=== PATIENT | female | born 1940 | race Caucasian/White ===

== ENCOUNTER → 2016-11-15 | Outpatient (CLI) | payer MEDICARE, OTHER ==
[~2016-11-15] MED LIST: ASPIRIN 81M81 MG/TA2 PO; BETAPACE 80MG80 MG PO; BYSTOLIC5 MG PO; CALCIUM + D 6001 TA1 PO; CARDI-OMEGA1000 MG PO; CATAPRES 0.1MG0.1 MG PO; CLEOCIN HCL300 MG PO; COUMADIN 5MG5 MG/TAB PO; EDARBI80 MG PO; FOSAMAX 70MG TA70 MG PO; LASIX 20MG TABL20 MG PO; LEVOTHYROXIN; MULTAQ400 MG PO; POTASSIUM99 MG PO; PRILOSEC 20MG20 MG PO; RED RICE YEAST E0.4% PO; SYNTHROID0.075 MG/T PO; VITAMIN C500 MG PO; VITAMIN D31000 I1 PO
== END ==
LOC: COL.RAD 10:14
DX: M25.551 Pain in right hip (principal)
CPT/HCPCS: J3301; Q9967

== ENCOUNTER 2017-02-28 11:15 | Inpatient (IN) | payer MEDICARE, OTHER ==
[~2017-02-28] VITALS: Ht 160 cm; Wt 76.0 kg
[2017-04-11] VITALS (13 sets, daily range): BP systolic 105–144; BP diastolic 54–70; PULSE 69–82; TEMP 97.5–98.8
[2017-04-11 06:51] LABS: INR 1.1 (0.8-3.0); PROTHROMBIN TIME 12.4 SECONDS (9.7-12.8)
[2017-04-12] VITALS (9 sets, daily range): BP systolic 86–129; BP diastolic 41–64; PULSE 74–88; TEMP 97.9–99.5
[2017-04-12 08:18] LABS: INR 1.2 (0.8-3.0); PROTHROMBIN TIME 13.6 SECONDS (9.7-12.8)
[2017-04-12 08:19] LABS: HEMATOCRIT 30.5 % (37.0-47.0); HEMOGLOBIN 10.2 g/dl (12.5-16.0)
[2017-04-12 18:15] LABS: HEMATOCRIT 31.5 % (37.0-47.0); HEMOGLOBIN 10.6 g/dl (12.5-16.0)
[2017-04-13 00:09] VITALS: BP 134/62; PULSE 82; TEMP 98.2
[2017-04-13 03:11] VITALS: BP 123/49; PULSE 85; TEMP 99.1
[2017-04-13 06:29] VITALS: PULSE 89
[2017-04-13 07:27] VITALS: BP 145/59; PULSE 95; TEMP 98.4
[2017-04-13 07:45] LABS: INR 1.6 (0.8-3.0); PROTHROMBIN TIME 17.8 SECONDS (9.7-12.8)
[2017-04-13 07:46] LABS: HEMATOCRIT 31.8 % (37.0-47.0); HEMOGLOBIN 10.7 g/dl (12.5-16.0)
[2017-04-13 11:38] VITALS: BP 114/54; PULSE 86; TEMP 97.7
[2017-04-13] MEDS ORDERED: NORCO 325 MG-7.1 TAB PO (12:46)
[2017-04-13] MEDS ORDERED: COUMADIN 3MG3 MG/TAB PO (12:46)
[2017-04-13] MEDS ORDERED: ROXICODONE 55 MG/TAB PO (12:48)
== END 2017-04-13 14:47 | disposition home or self-care (01) | DRG 470 ==
LOC: JCC 04-11 05:10
PROVIDERS: Nurse Anesthetist, Certified Registered; Orthopaedic Surgery
PROC: 0SR90JA Replacement of Right Hip Joint with Synthetic Substitute, Uncemented, Open Approach (ICD-10-PCS; principal; 2017-04-11 07:30)
DX: M16.11 Unilateral primary osteoarthritis, right hip (principal); I10 Essential (primary) hypertension; Z79.01 Long term (current) use of anticoagulants; Z95.5 Presence of coronary angioplasty implant and graft
CPT/HCPCS: A4315; A9284; C1776; J2250; J2370; J2704; J2765; J3010; J7030; J7040; J7120

== ENCOUNTER → 2017-03-29 | Outpatient (CLI) | payer MEDICARE, OTHER ==
[2017-03-29 16:17] LABS: HIV 1/2 Antibodies Non-Reactive; HIV-1p24 Antigen Non-Reactive
== END ==
LOC: COL.LAB 14:56
PROVIDERS: Orthopaedic Surgery
DX: Z01.812 Encounter for preprocedural laboratory examination (principal); M16.11 Unilateral primary osteoarthritis, right hip

== ENCOUNTER 2023-04-14 17:26 | Inpatient (IN) | payer MEDICARE, OTHER ==
[~2023-04-14] VITALS: Ht 157.5 cm; Wt 62.8 kg
[~2023-04-14 17:26] MED LIST changes: +ASPIRIN E.C. 8181 MG PO; +BENICAR40 MG PO; -BETAPACE 80MG80 MG PO; +BETAPACEAF120 PO; +BRILINTA90 MG PO; +CALCIUM 600 MG1 EAC2 PO; +COUMADIN 3MG3 MG/TAB PO; -COUMADIN 5MG5 MG/TAB PO; +COUMADIN4 MG PO; +HAIRSKINNAILS PO; +LUTEIN20 M1 PO; +MASON NATURAL600 MG PO; +MULTI VITAMINS1 TAB PO; +NATURAL MAGNES200 MG PO; +NATURAL POTASS595 MG PO; +NORCO 325 MG-7.1 TAB PO; +NORVASC 5MG5 MG/TAB PO; -POTASSIUM99 MG PO; +ROXICODONE 55 MG/TAB PO; +TART CHERRY PO; +THE MEDICINE S200 M2 PO; +TURMERIC500 MG PO; +ULTRAM 50MG TAB50 MG PO
--- NOTE | 2023-04-14 19:00 | NUR ---
Patient arrived to the unit at this time with . Assessment complete. IV in right AC flushes easily and no complicaitions. Patient put on Tele. Oriented patient and family to room. Denies any pain at this time. Skin looks good. Denies any other needs at this point. Call light and personal items in reach. Bed in low position.
[2023-04-14 19:30] VITALS: BP 136/69; PULSE 71; TEMP 97.7
[2023-04-14 19:40] VITALS: BP 136/69; PULSE 71; TEMP 97.7
[2023-04-14] MEDS ORDERED: JARDIANCE10 (19:57)
[2023-04-14] MEDS ORDERED: IMDUR 60MG60 MG/TAB PO (19:58)
[2023-04-14] MEDS ORDERED: BENICAR40 MG PO (19:59)
[2023-04-14] MEDS ORDERED: LASIX 20MG TABL20 MG PO (20:00)
[2023-04-14 20:04] LABS: BASO # 0.1 K/mm3 (0.0-0.2); BASO % 1.1 % (0.0-2.0); EOS # 0.1 K/mm3 (0.0-0.7); EOS % 1.8 % (0.0-4.0); GRAN # 3.5 K/mm3 (1.4-6.5); GRAN % 62.8 % (42.2-75.2); HEMATOCRIT 44.9 % (37.0-47.0); HEMOGLOBIN 15.2 g/dl (12.5-16.0); LYMPH # 1.4 K/mm3 (1.2-3.4); LYMPH % 25.1 % (20.0-51.0); MEAN CELL VOLUME 95 fl (80.0-100.0); MEAN CORPUSCULAR HEMOGLOBIN 32 pg (27-31); MEAN CORPUSCULAR HGB CONC 34 g/dl (33.0-37.0); MEAN PLATELET VOLUME 10.1 fl (7.4-10.4); MONO # 0.5 K/mm3 (0.1-0.6); PLATELET COUNT 169 K/mm3 (130-400); RED BLOOD COUNT 4.73 M/mm3 (4.10-5.30)
[2023-04-14 20:20] LABS: ALANINE AMINOTRANSFERASE 20 U/L (0-55); ALKALINE PHOSPHATASE 89 U/L (40-150); ANION GAP 14 mmol/L (7-16); AST,SGOT 23 U/L (5-34); BILIRUBIN,TOTAL 2.2 mg/dL (0.2-1.2); BLOOD UREA NITROGEN 12 mg/dL (10-20); CALCIUM 9.1 mg/dL (8.4-10.2); CARBON DIOXIDE 26 mmol/L (23-31); CHLORIDE 100 mmol/L (98-107); CREATININE, serum 0.84 mg/dL (0.57-1.11); GLUCOSE 121 mg/dL (70-99); MAGNESIUM 1.9 mg/dL (1.6-2.6); PHOSPHOROUS 3.3 mg/dL (2.3-4.7); SODIUM 140 mmol/L (136-145); TOTAL PROTEIN 6.4 gm/dL (6.2-8.1)
[2023-04-14 20:21] LABS: INR 3.2 (0.8-3.0); PROTHROMBIN TIME 34.2 SECONDS (9.7-12.8)
[2023-04-14 20:26] LABS: TROPONIN-I < 0.010 ng/mL (0.00-0.033)
[2023-04-14 21:00] VITALS: BP_SYST 130
[2023-04-14 23:46] VITALS: BP 130/66; PULSE 77; TEMP 97.5
[2023-04-15] VITALS (12 sets, daily range): BP systolic 111–146; BP diastolic 50–80; PULSE 73–81; TEMP 97.6–98.3
[2023-04-15 06:07] LABS: HEMATOCRIT 41.3 % (37.0-47.0); HEMOGLOBIN 13.6 g/dl (12.5-16.0); MEAN CELL VOLUME 95 fl (80.0-100.0); MEAN CORPUSCULAR HEMOGLOBIN 31 pg (27-31); MEAN CORPUSCULAR HGB CONC 33 g/dl (33.0-37.0); MEAN PLATELET VOLUME 9.9 fl (7.4-10.4); PLATELET COUNT 150 K/mm3 (130-400); RED BLOOD COUNT 4.35 M/mm3 (4.10-5.30)
--- NOTE | 2023-04-15 06:10 | NUR ---
Patient resting in bed. Denies any pain or needs at this time. Call light and personal items in reach. Bed in low position
[2023-04-15 06:29] LABS: ALBUMIN 3.5 gm/dL (3.4-4.8); BILIRUBIN,TOTAL 1.8 mg/dL (0.2-1.2); CALCIUM 8.7 mg/dL (8.4-10.2); CREATININE, serum 0.76 mg/dL (0.57-1.11); MAGNESIUM 1.8 mg/dL (1.6-2.6); POTASSIUM 3.3 mmol/L (3.5-4.5); TOTAL PROTEIN 5.4 gm/dL (6.2-8.1)
--- NOTE | 2023-04-15 10:13 | NUR ---
PATIENT RESTING IN BED UPON ENTERING ROOM, AT BEDSIDE. MORNING MEDICATIONS ADMINISTERED. SHIFT ASSESSMENT COMPLETED. PATIENT DENIES ANY PAIN OR NEEDS AT THIS TIME. UPDATED ON PLAN FOR TODAY. CALL LIGHT WITHIN REACH, WILL CONTINUE TO MONITOR.
[2023-04-15 11:40] LABS: COLLECTION METHOD CLEAN CATCH; PH 5.5 (5.0-8.5); URINE APPEARANCE Clear (CLEAR/HAZY); URINE BLOOD TRACE-INTACT (NEGATIVE); URINE COLOR Yellow (YELLOW); URINE GLUCOSE 1+ (NEGATIVE); URINE KETONE TRACE (NEGATIVE); URINE NITRATE Negative (NEGATIVE); URINE PROTEIN(semi-quant) Negative (NEGATIVE); URINE UROBILINOGEN 0.2 E.U/dL (0.2-1.0)
[2023-04-15 11:41] LABS: SQUAMOUS EPITHELIAL 0-2 /hpf (0-10); URINE BACTERIA Rare /hpf (NONE SEEN)
--- NOTE | 2023-04-15 12:35 | NUR ---
Research Assoc rounds: Patient's Matthew is visiting. Matthew is a retired Senior Engineer who sometimes fills the pulpit for a taoism. Discussion about his current sermon series and about their family. Patient's lunch arrived. Patient chose to finish the Research Assoc visit before eating. Research Assoc prayed for Patient, her healing, and his ministry, and their family.
--- NOTE | 2023-04-15 14:55 | NUR ---
SW met with patient to complete intake. Spouse Matthew Ding [phone] who is also appointed DPOA\HC present during intake. Patient provides that she and spouse live in [facility]. Patient provides that she is independent with ADLs, does not utilize DME and does not utilize HH services at this time. PCP is Dr. Dumont in [place], and pharmacy is [facility] in [place]. DPOA is daughter Emi May. Patient dc plan is home. SW will continue to follow. DC plan: home
[2023-04-16] VITALS (9 sets, daily range): BP systolic 111–139; BP diastolic 61–85; PULSE 72–88; TEMP 97.8–98.3
--- NOTE | 2023-04-16 05:15 | NUR ---
ASSESSMENT COMPLETE FOR SUPPLY REQUIREMENTS OFFICER. PT COMPLAINED OF SOME NECK PAIN. SCHEDULED TRAMADOL GIVEN. PT FELT THE TRAMADOL WAS EFFECTIVE FOR HER PAIN. PT DENIED CHEST PAIN, PALPITATIONS, SOB, N,V,D OR DIZZINESS. PT EXPRESSED NO ADDITIONAL NEEDS. CALL LIGHT WITHIN REACH.
[2023-04-16 06:17] LABS: HEMATOCRIT 41.4 % (37.0-47.0); HEMOGLOBIN 13.9 g/dl (12.5-16.0); MEAN CELL VOLUME 95 fl (80.0-100.0); MEAN CORPUSCULAR HEMOGLOBIN 32 pg (27-31); MEAN CORPUSCULAR HGB CONC 34 g/dl (33.0-37.0); MEAN PLATELET VOLUME 10.2 fl (7.4-10.4); PLATELET COUNT 166 K/mm3 (130-400); RED BLOOD COUNT 4.37 M/mm3 (4.10-5.30)
[2023-04-16 06:34] LABS: CALCIUM 9.1 mg/dL (8.4-10.2); CREATININE, serum 0.76 mg/dL (0.57-1.11); MAGNESIUM 1.9 mg/dL (1.6-2.6); POTASSIUM 3.2 mmol/L (3.5-4.5)
--- NOTE | 2023-04-16 08:00 | NUR ---
Patient sitting up on the edge of bed. A&Ox4. VSS. IV CDI. Denies pain and discomfort. Call light within reach
[2023-04-16 08:50] LABS: INR 2.8 (0.8-3.0); PROTHROMBIN TIME 30.2 SECONDS (9.7-12.8)
--- NOTE | 2023-04-16 20:45 | NUR ---
Patient sitting on bench. Denies any pain at this time. Assessment complete. IV in right AC flushes with no complications and IV dressign changed. Denies any needs at this time. Call light and personal items in reach. Bed in low position
[2023-04-17] VITALS (16 sets, daily range): BP systolic 104–143; BP diastolic 61–89; PULSE 61–117; TEMP 85–98.5
--- NOTE | 2023-04-17 06:00 | NUR ---
Patient resting in bed. Denies any pain or needs at this time. Call light and personal items in reach. Bed in low position
--- NOTE | 2023-04-17 08:52 | NUR ---
[employer] Crewmember collaborated with Treatment Team during rounding to assess Patient for discharge readiness. Patient is anticipated to discharge today pending cardiology assessment. Discahrge Plan: Home
--- NOTE | 2023-04-17 09:00 | NUR ---
PATIENT RESTING IN BED UPON ENTERING ROOM. MORNING MEDICATIONS GIVEN. SHIFT ASSESSMENT COMPLETED. PATIENT UPDATED ON PLAN OF CARE FOR TODAY, MADE NPO FOR PROCEDURE AFTER BREAKFAST. DENIES ANY NEEDS AT THIS TIME. CALL LIGHT WITHIN REACH. WILL CONTINUE TO MONIOR.
--- NOTE | 2023-04-17 09:05 | NUR ---
Per cardiology, Patient will need further assessment and treatment. Physician anticipates Patient will bee here through the week.
[2023-04-17 09:15] LABS: BASO # 0.1 K/mm3 (0.0-0.2); EOS # 0.1 K/mm3 (0.0-0.7); EOS % 2.8 % (0.0-4.0); GRAN # 2.4 K/mm3 (1.4-6.5); GRAN % 48.6 % (42.2-75.2); HEMATOCRIT 47.1 % (37.0-47.0); HEMOGLOBIN 15.8 g/dl (12.5-16.0); LYMPH # 1.8 K/mm3 (1.2-3.4); LYMPH % 36.2 % (20.0-51.0); MEAN CELL VOLUME 95 fl (80.0-100.0); MEAN CORPUSCULAR HEMOGLOBIN 32 pg (27-31); MEAN CORPUSCULAR HGB CONC 34 g/dl (33.0-37.0); MEAN PLATELET VOLUME 10.5 fl (7.4-10.4); MONO # 0.6 K/mm3 (0.1-0.6); MONO % 11.4 % (1.7-9.3); PLATELET COUNT 183 K/mm3 (130-400); RED BLOOD COUNT 4.94 M/mm3 (4.10-5.30); REDCELL DISTRIBUTION WIDTH-CV 14.3 % (11.5-14.5)
--- NOTE | 2023-04-17 10:24 | NUR ---
PATIENT OFF UNIT FOR PROCEDURE AT THIS TIME.
--- NOTE | 2023-04-17 20:15 | NUR ---
Patient resting in bed with at bedside. Denies any pain at this time. Assessment complete. Denies any other needs at this time. Bed in low position. Call light and personal items in reach.
[2023-04-18] VITALS (12 sets, daily range): BP systolic 97–129; BP diastolic 49–72; PULSE 69–80; TEMP 97.3–98.1
--- NOTE | 2023-04-18 06:00 | NUR ---
Patient resting in bed with at bedside. Denies any pain or needs at this time. Call light and personal items in reach. Bed in low position
[2023-04-18 06:11] LABS: INR 2.2 (0.8-3.0)
[2023-04-18 11:16] LABS: BASO # 0.1 K/mm3 (0.0-0.2); BASO % 1.2 % (0.0-2.0); EOS # 0.2 K/mm3 (0.0-0.7); EOS % 4.2 % (0.0-4.0); GRAN # 2.4 K/mm3 (1.4-6.5); GRAN % 47.1 % (42.2-75.2); HEMOGLOBIN 15.1 g/dl (12.5-16.0); LYMPH # 1.8 K/mm3 (1.2-3.4); LYMPH % 35.3 % (20.0-51.0); MEAN CELL VOLUME 96 fl (80.0-100.0); MEAN CORPUSCULAR HEMOGLOBIN 32 pg (27-31); MEAN CORPUSCULAR HGB CONC 34 g/dl (33.0-37.0); MEAN PLATELET VOLUME 10.3 fl (7.4-10.4); MONO # 0.6 K/mm3 (0.1-0.6); PLATELET COUNT 175 K/mm3 (130-400); RED BLOOD COUNT 4.69 M/mm3 (4.10-5.30); REDCELL DISTRIBUTION WIDTH-CV 14.5 % (11.5-14.5)
[2023-04-18 11:22] LABS: POTASSIUM 3.9 mmol/L (3.5-4.5)
[2023-04-18 11:34] LABS: CALCIUM 9.3 mg/dL (8.4-10.2); CREATININE, serum 0.83 mg/dL (0.57-1.11)
[2023-04-18 11:48] LABS: MAGNESIUM 1.9 mg/dL (1.6-2.6)
--- NOTE | 2023-04-18 12:00 | NUR ---
Reviewed education for chronic heart failure. Reviewed [facility] CHF educational booklet, with emphasis on daily weights, obtaining dry weights, monitoring for edema, shortness of breath, decreased endurance, or feeling full when eating less. Reviewed importance of medication compliance with all prescribed medications and when to call your medical provider (CHF Zones). Patient verbalized understanding. Patient s EF is 35% which does qualify for Cardiac Rehab. Discussed with patient and she states she "would be interested if Dr. Howard thinks it would be good for me". Staff encouraged patient to discuss with Dr Howard at f/u or to call Cardiac rehab staff to follow up for referral. Patient verbalized understanding.
--- NOTE | 2023-04-18 15:58 | NUR ---
Slasher Tender Helper met with Patient and to review discharge plan. Patient continues to intend on discharging home with no services when medically ready. SW provided this SW direct contact number in the case that Patient has any questions or concerns related to discharge planning.
--- NOTE | 2023-04-18 20:30 | NUR ---
Patient resting in bed. Deneis any pain at this time. Assessment complete. IV in right AC flushes easily with no complications. Denies any other needs at this time. Call light and personal items in reach. Bed in low position.
[2023-04-19 01:00] VITALS: BP_SYST 110
[2023-04-19 03:18] VITALS: BP 120/75; PULSE 65; TEMP 98
[2023-04-19 05:06] VITALS: BP_SYST 120
[2023-04-19 05:42] LABS: INR 2.3 (0.8-3.0); PROTHROMBIN TIME 24.4 SECONDS (9.7-12.8)
[2023-04-19 05:57] LABS: BASO # 0.1 K/mm3 (0.0-0.2); BASO % 0.9 % (0.0-2.0); EOS # 0.2 K/mm3 (0.0-0.7); GRAN # 2.8 K/mm3 (1.4-6.5); GRAN % 50.3 % (42.2-75.2); HEMATOCRIT 46.2 % (37.0-47.0); HEMOGLOBIN 15.2 g/dl (12.5-16.0); LYMPH # 1.9 K/mm3 (1.2-3.4); LYMPH % 33.8 % (20.0-51.0); MEAN CELL VOLUME 97 fl (80.0-100.0); MEAN CORPUSCULAR HEMOGLOBIN 32 pg (27-31); MEAN CORPUSCULAR HGB CONC 33 g/dl (33.0-37.0); MEAN PLATELET VOLUME 10.1 fl (7.4-10.4); MONO # 0.6 K/mm3 (0.1-0.6); MONO % 10.8 % (1.7-9.3); PLATELET COUNT 184 K/mm3 (130-400); RED BLOOD COUNT 4.78 M/mm3 (4.10-5.30); REDCELL DISTRIBUTION WIDTH-CV 14.2 % (11.5-14.5)
--- NOTE | 2023-04-19 06:10 | NUR ---
Patient resting in bed. Denies any pain at this time. Water refille, denies any other needs at this time. Call light and personal items in reach. Bed in low position.
[2023-04-19 06:18] LABS: CALCIUM 9.6 mg/dL (8.4-10.2); CREATININE, serum 0.91 mg/dL (0.57-1.11); POTASSIUM 4.1 mmol/L (3.5-4.5)
[2023-04-19 07:30] LABS: INR 2.4 (0.8-3.0); PROTHROMBIN TIME 25.7 SECONDS (9.7-12.8)
[2023-04-19 08:27] VITALS: BP 118/62; PULSE 77; TEMP 98
[2023-04-19 12:00] VITALS: BP 126/62; PULSE 71; TEMP 98.8
[2023-04-19] MEDS ORDERED: PACERONE400 MG PO (12:57)
[2023-04-19] MEDS ORDERED: TOPROL XL 25MG25 MG PO (12:58)
[2023-04-19] MEDS ORDERED: ALDACTONE 25MG25 M1 PO (12:59)
[2023-04-19] MEDS ORDERED: COUMADIN 2MG2 MG/TAB PO (13:04)
[2023-04-19] MEDS ORDERED: LIPITOR 10MG10 MG PO (13:04)
--- NOTE | 2023-04-19 15:00 | NUR ---
Discharge paperwork reviewed with the patient. Patient verbalized an understanding to follow doctors orders. IV removed, tip intact. Gauze and coban applied. No further needs expressed from the patient. Patient transfered by wheelchair to awaiting vehicle. Personal belongings with the patient
--- NOTE | 2023-04-19 15:59 | NUR ---
Flaring Machine Operator met with Patient at bedside to conduct Medicare IM brief. Patient ascknowledges brief and signs form. Original placed in chart, copy was provided to Patient. Patient discharged home today.
== END 2023-04-19 15:00 | disposition home or self-care (01) | DRG 308 ==
LOC: MEDICAL 18:41
PROVIDERS: Hospitalist; Physician Assistant; ADMIT Internal Medicine
DX: I48.91 Unspecified atrial fibrillation (principal); I50.23 Acute on chronic systolic (congestive) heart failure; I27.20 Pulmonary hypertension, unspecified; I25.10 Atherosclerotic heart disease of native coronary artery without angina pectoris; Z95.5 Presence of coronary angioplasty implant and graft; E03.9 Hypothyroidism, unspecified; I11.0 Hypertensive heart disease with heart failure; K64.9 Unspecified hemorrhoids
CPT/HCPCS: A9270; A9500-JZ; J1940; J2785; J3475

== ENCOUNTER 2023-08-21 07:30 | Day surgery (SDC) | payer MEDICARE, OTHER ==
[~2023-08-21] VITALS: Ht 157.5 cm; Wt 61.8 kg
[2023-08-21] VITALS (15 sets, daily range): BP systolic 103–136; BP diastolic 49–78; PULSE 57–98; TEMP 97.4–98.3
[~2023-08-21 07:30] MED LIST changes: +ALDACTONE 25MG25 M1 PO; +CORDARONE200 MG/TAB PO; +COUMADIN 2MG2 MG/TAB PO; +IMDUR 60MG60 MG/TAB PO; +IRON TABLETS325 MG PO; +JARDIANCE10; +LIPITOR 10MG10 MG PO; +NITROSTAT0.4 MG/TAB SL; +PACERONE400 MG PO; +TOPROL XL 25MG25 MG PO
[2023-08-21] MEDS ORDERED: 1/2 NS 1,000 ML IV SCH (08:00)
[2023-08-21 08:30] LABS: HEMATOCRIT 45.1 % (37.0-47.0); HEMOGLOBIN 15.2 g/dl (12.5-16.0); MEAN CELL VOLUME 100 fl (80.0-100.0); MEAN CORPUSCULAR HEMOGLOBIN 34 pg (27-31); MEAN CORPUSCULAR HGB CONC 34 g/dl (33.0-37.0); MEAN PLATELET VOLUME 9.5 fl (7.4-10.4); PLATELET COUNT 211 K/mm3 (130-400)
[2023-08-21] MEDS ORDERED: BENICAR5 MG PO (08:36)
[2023-08-21 08:41] LABS: INR 1.3 (0.8-3.0); PROTHROMBIN TIME 14.1 SECONDS (9.7-12.8)
[2023-08-21 08:51] LABS: CALCIUM 9.9 mg/dL (8.4-10.2); CREATININE, serum 1.36 mg/dL (0.57-1.11); POTASSIUM 4.7 mmol/L (3.5-4.5)
[2023-08-21] MEDS ORDERED: Vancomycin 1 GM VIAL IR SCH (11:50)
--- NOTE | 2023-08-21 12:06 | NUR ---
SEE MERGE FOR PROCEDURE DOCUMENTATION
[2023-08-21] MEDS ORDERED: Iohexol 350 - 100 ML VIAL IA ONE (13:05)
[2023-08-21] MEDS ORDERED: NS 1,000 ML IV.SOLN. IR SCH (13:09)
[2023-08-21] MEDS ORDERED: Midazolam 2 MG/2 ML VIAL IV SCH (13:10)
[2023-08-21] MEDS ORDERED: Topical Skin Adhesive 1 EACH (1 ML) TOP ONE (13:10)
[2023-08-21] MEDS ORDERED: fentaNYL 50 MCG/ML 2 ML VIAL IV SCH (13:12)
[2023-08-21] MEDS ORDERED: Magnes Hydrox (MOM) 80 MG/ML 30 ML CUP PO PRN (13:45)
[2023-08-21] MEDS ORDERED: Ondansetron 4 MG/2 ML VIAL IV PRN (13:45)
[2023-08-21] MEDS ORDERED: Ascorbic Acid 500 MG TAB PO ONE (13:45)
[2023-08-21] MEDS ORDERED: Bisacodyl 5 MG TAB PO PRN (13:45)
--- NOTE | 2023-08-21 13:45 | NUR ---
Bedside report completed with Christi HAMILTON, first set of vitals reviewed, call light within reach, telemetry box in place, site reviewed. Christi HAMILTON denies questions/concerns at this time.
--- NOTE | 2023-08-21 13:57 | NUR ---
Patient arrived to the medical unit room 308, alert and oriented x 4, VSS. States some discomfort on the left shoulder (ICD site), 09/02. and daughter at the bedside. ICD site, CDI.
[2023-08-21] MEDS ORDERED: NS Flush 25 ML IV Bag IV SCH (18:00)
[2023-08-21] MEDS ORDERED: traMADol 50 MG TAB PO SCH (18:00)
--- NOTE | 2023-08-21 19:17 | NUR ---
Patient has been stable after procedure. Able to eat and ambulate with no problems. Report given to night RN.
--- NOTE | 2023-08-21 19:33 | NUR ---
PATIENT SITTING UP ON EDGE OF BED WITH AT BEDSIDE. TELEMETRY INTACT. CLEOCIN COMPLETED. RABIA FLUSHED IV. PATIENT ASSISTED TO BATHROOM BY PATIENT HUMAN GEOGRAPHY FACULTY MEMBER. PATIENT DENIES ANY OTHER NEEDS AT THIS TIME. PATIENT CARE ASSUMED FROM RABIA. BED IN LOW POSITION WITH WHEELS LOCKED WITH RAILS UP X2 AND CALL LIGHT WITHIN REACH.
--- NOTE | 2023-08-21 20:50 | NUR ---
PATIENT RESTING IN BED WITH EYES CLOSED WITH AUDIBLE SNORING HEARD WITH AT BEDSIDE WITH NO ACUTE DISTRESS NOTED. PATIENT EASILY AROUSED. ASSESSMENT AND MEDICATION ADMINISTATION COMPLETED AT THIS TIME. PATIENT TOLERATED WELL. PATIENT REQUESTED NEW ICE PACK AND WAS GIVEN. PATIENT DENIES ANY OTHER NEEDS. BED IN LOW POSITION WITH WHEELS LOCKED WITH RAILS UP X3 AND CALL LIGHT WITHIN REACH.
[2023-08-21] MEDS ORDERED: Melatonin 3 MG TAB PO PRN (21:00)
[2023-08-21] MEDS ORDERED: Atorvastatin 10 MG TAB PO SCH (21:00)
[2023-08-22 00:14] VITALS: BP_SYST 108
[2023-08-22 03:51] VITALS: BP 100/60; PULSE 68; TEMP 97.3
[2023-08-22 04:00] VITALS: BP_SYST 100
[2023-08-22 07:00] LABS: BASO % 0.8 % (0.0-2.0); EOS # 0.1 K/mm3 (0.0-0.7); EOS % 2.3 % (0.0-4.0); GRAN # 3.6 K/mm3 (1.4-6.5); GRAN % 69.2 % (42.2-75.2); HEMATOCRIT 40.7 % (37.0-47.0); HEMOGLOBIN 13.8 g/dl (12.5-16.0); LYMPH # 0.8 K/mm3 (1.2-3.4); LYMPH % 15.6 % (20.0-51.0); MEAN CELL VOLUME 100 fl (80.0-100.0); MEAN CORPUSCULAR HEMOGLOBIN 34 pg (27-31); MEAN CORPUSCULAR HGB CONC 34 g/dl (33.0-37.0); MEAN PLATELET VOLUME 9.4 fl (7.4-10.4); MONO # 0.6 K/mm3 (0.1-0.6); MONO % 11.7 % (1.7-9.3); PLATELET COUNT 156 K/mm3 (130-400); RED BLOOD COUNT 4.08 M/mm3 (4.10-5.30)
[2023-08-22] MEDS ORDERED: Omeprazole 20 MG **** subs to Pantoprazole 40 MG PO SCH (07:00)
[2023-08-22 07:10] VITALS: BP 119/71; PULSE 83; TEMP 98.2
[2023-08-22 07:15] LABS: INR 1.3 (0.8-3.0); PROTHROMBIN TIME 13.6 SECONDS (9.7-12.8)
[2023-08-22 07:26] LABS: ALBUMIN 3.5 gm/dL (3.4-4.8); BILIRUBIN,TOTAL 1.7 mg/dL (0.2-1.2); CREATININE, serum 1.13 mg/dL (0.57-1.11); POTASSIUM 4.7 mmol/L (3.5-4.5); TOTAL PROTEIN 5.6 gm/dL (6.2-8.1)
[2023-08-22] MEDS ORDERED: Spironolactone 25 MG TAB PO SCH (08:00)
[2023-08-22 08:30] VITALS: BP_SYST 119
[2023-08-22] MEDS ORDERED: Losartan 25 MG TAB PO SCH (09:00)
[2023-08-22] MEDS ORDERED: Empagliflozin 10 MG TAB PO SCH (09:00)
[2023-08-22] MEDS ORDERED: SUBS TO LOSARTAN PO SCH (09:00)
[2023-08-22] MEDS ORDERED: Amiodarone 200 MG TAB PO SCH (09:00)
[2023-08-22] MEDS ORDERED: Ferrous Sulfate 325 MG TAB PO SCH (09:00)
[2023-08-22] MEDS ORDERED: Furosemide 20 MG TAB PO SCH (09:00)
[2023-08-22] MEDS ORDERED: Isosorbide Mononitrate CR (24-HR) 60 MG TAB PO SCH (09:00)
[2023-08-22] MEDS ORDERED: OLMESARTAN 10 MG PO SCH (09:00)
[2023-08-22] MEDS ORDERED: Lutein 20 MG CAP PO SCH (09:00)
--- NOTE | 2023-08-22 09:51 | NUR ---
Patient alert and oriented x4. Complains of mild pain to incision site at left side of chest. Site is CDI, no redness or swelling noted. Ice pack provided, pain managed with scheduled Tramadol. Pacemaker interrogated this morning. at bedside. Activity at baseline. Tolerating food and fluids well. Morning medications adminsitered by [facility] furnace operator and tender and instructor. Call light within reach, all needs met at this time.
[2023-08-22] MEDS ORDERED: CLEOCIN HCL300 MG PO (10:08)
[2023-08-22] MEDS ORDERED: NORCO 325 MG-51 TAB PO (10:09)
--- NOTE | 2023-08-22 11:04 | NUR ---
Initial visit; Patient thanked Project Accountant for looking in on her and her family and for keeping her in Project Accountant's prayers. Project Accountant will follow up which seemed to please
--- NOTE | 2023-08-22 12:11 | NUR ---
Discharge instructions discussed with patient including follow-up appointments, new medications, post-ICD placement recovery/restrictions, and education packets. Patient verbalized understanding. IV discontinued to left AC with no complications. Telemetry off. Patient escorted out by family and staff via wheelchair.
--- NOTE | 2023-08-22 13:13 | NUR ---
cheese factory worker met with patient and family at bedside to discuss discharge planning. Pt reports she lives with her in [place]. She lists her as Matthew [phone] and he is present in the room. Pt reports she sees Linda Galindo and obtains medications from [facility] with no difficulties. She is independent with ADLS and uses a cane for DME, if needed. She states her DPOA-HC is at home and lists her daughter, Emi. Pt intends to return home today. Discharge Plan: home
[2023-08-22] MEDS ORDERED: Clindamycin 150 MG CAP PO SCH (14:00)
== END 2023-08-22 11:45 | disposition home or self-care (01) ==
LOC: COL.CAR 07:30 → MEDICAL 07:30 → COL.CAR 07:45 → MEDICAL 13:45 → COL.CAR 08-22 11:45
PROVIDERS: Internal Medicine Cardiovascular Disease
DX: I44.7 Left bundle-branch block, unspecified (principal); I11.0 Hypertensive heart disease with heart failure; I50.22 Chronic systolic (congestive) heart failure; I42.0 Dilated cardiomyopathy; I08.1 Rheumatic disorders of both mitral and tricuspid valves; I48.91 Unspecified atrial fibrillation; Z95.5 Presence of coronary angioplasty implant and graft
CPT/HCPCS: OP; A9270; C1769; C1777; C1882; C1900; J0665-JZ; J0737; J2250; J3010; J3370; J7030; J7050; Q9967

== ENCOUNTER 2023-10-17 09:53 | Day surgery (SDC) | payer MEDICARE, OTHER ==
[2023-10-17] VITALS (7 sets, daily range): BP systolic 143–171; BP diastolic 69–101; PULSE 65–72; TEMP 98.3
[~2023-10-17] VITALS: Ht 157.5 cm; Wt 60.5 kg
[~2023-10-17 09:53] MED LIST changes: +BENICAR5 MG PO; -IRON TABLETS325 MG PO; +LR 1,000 ML IV SCH; +Lidocaine PF 2% (20 MG/ML) 5 ML VIAL ONE; +NORCO 325 MG-51 TAB PO
[2023-10-17] MEDS ORDERED: 1/2 NS 1,000 ML IV SCH (10:30)
[2023-10-17] MEDS ORDERED: NS Flush 10 ML SYRINGE PRN ICA (10:30)
[2023-10-17 10:52] LABS: HEMATOCRIT 47.8 % (37.0-47.0); HEMOGLOBIN 16.4 g/dl (12.5-16.0); MEAN CELL VOLUME 98 fl (80.0-100.0); MEAN CORPUSCULAR HEMOGLOBIN 34 pg (27-31); MEAN CORPUSCULAR HGB CONC 34 g/dl (33.0-37.0); MEAN PLATELET VOLUME 9.6 fl (7.4-10.4); PLATELET COUNT 188 K/mm3 (130-400); RED BLOOD COUNT 4.89 M/mm3 (4.10-5.30); REDCELL DISTRIBUTION WIDTH-CV 12.5 % (11.5-14.5)
[2023-10-17 10:56] LABS: INR 2.9 (0.8-3.0); PROTHROMBIN TIME 31.2 SECONDS (9.7-12.8)
[2023-10-17 11:02] LABS: CALCIUM 9.6 mg/dL (8.4-10.2); CREATININE, serum 1.25 mg/dL (0.57-1.11); MAGNESIUM 2.2 mg/dL (1.6-2.6); POTASSIUM 4.7 mEq/L (3.5-4.5)
[2023-10-17] MEDS ORDERED: ALDACTONE 25MG25 M1 PO (11:26)
[2023-10-17] MEDS ORDERED: COUMADIN 2MG2 MG/TAB PO (11:31)
[2023-10-17] MEDS ORDERED: COUMADIN 3MG3 MG/TAB PO (11:32)
[2023-10-17] MEDS ORDERED: CALCIUM 600MG+D1 TAB PO (11:37)
[2023-10-17] MEDS ORDERED: IRON TABLETS325 MG PO (11:46)
[2023-10-17] MEDS ORDERED: VITAMIN D31000 I1 PO (11:48)
[2023-10-17] MEDS ORDERED: TUMS500 MG PO (11:49)
[2023-10-17] MEDS ORDERED: TYLENOL 325MG325 MG PO (11:50)
[2023-10-17] MEDS ORDERED: MULTIPLE VITAMI1 CAP PO (11:53)
[2023-10-17] MEDS ORDERED: CATAPRES 0.1MG0.1 MG PO (11:53)
--- NOTE | 2023-10-17 12:45 | NUR ---
Pt back to EU - bedside handoff to Estefania,RN - pt AOx4, vitals initiated and stable. Call light in reach, family at bedside
[2023-10-17 13:37] LABS: THYROID STIMULATING HORMONE 0.757 uIU/mL (0.350-4.940)
--- NOTE | 2023-10-17 15:00 | NUR ---
Discharge instructions given to pt.pt verbalizes understanding.INT removed,catheter tip intact.Pt escorted out via wheelchair by this nurse.
[2023-10-17] MEDS ORDERED: NS Flush 10 ML SYRINGE BID ICA SCH (21:00)
== END 2023-10-17 15:49 ==
LOC: COL.CAR 09:53
PROVIDERS: Internal Medicine Cardiovascular Disease
DX: I48.0 Paroxysmal atrial fibrillation (principal)
CPT/HCPCS: J2704; J7120